=== PATIENT | female | born 1950 | race Caucasian/White ===

== ENCOUNTER 2016-09-02 14:20 | Outpatient (CLI) | payer MEDICARE, OTHER | END 2016-09-02 23:59 | DX: R41.3 Other amnesia (principal) ==

== ENCOUNTER 2016-09-17 08:40 | Outpatient (CLI) | payer OTHER ==
[2016-09-17] MEDS ORDERED: GADOBUTROL 7.5 MMOL/7.5 ML VIAL IVP ONE ×2 (10:00)
--- NOTE | 2016-09-17 17:01 | MRI Report ---
EXAM: MRI BRAIN WITHOUT AND WITH CONTRAST EXAM DATE: 09/17/2016 10:03 AM. CLINICAL HISTORY: Memory deficit. COMPARISON: None. TECHNIQUE: Multiplanar, multisequence T1-weighted and fluid-sensitive MR sequences of the brain were performed. Sequences optimized for routine evaluation. Other: None. Without and with IV Contrast: 6.5 cc Gadavist. FINDINGS: Brain Volume: Mild age-related volume loss is seen. Parenchyma/Dura: No masses, infarcts, or hemorrhage. Minimal periventricular and scattered punctate s ubcortical white matter T2 and FLAIR bright signal is seen in the cerebral hemispheres. No cortical s ignal abnormality. No abnormal enhancement. Ventricles/Cisterns: No hydrocephalus. No abnormal extra-axial fluid collection or hemorrhage. Orbits: The globes, optic nerve sheath complex, extraocular muscles, and orbital fat are unremarkable . Sella Turcica: The pituitary gland, cavernous sinuses, suprasellar cistern, and optic chiasm are unre markable. IAC: The internal auditory canals and cerebellopontine angle cisterns are symmetric and unremarkable. Vasculature: Normal signal flow void is seen in the major arterial structures at the skull base. The dural sinuses are patent and enhance normally. Sinuses: No sinusitis evident. Bones: The skull is intact. Other: None. IMPRESSION: 1. Negative MRI of the brain without and with contrast. No acute abnormality. No infarct, mass, hemor rhage, or abnormal enhancement. 2. Minimal senescent change. Minimal white matter T2/FLAIR bright signal is seen in the cerebral silviano spheres. This is not an unexpected finding in a patient of age 66 years. This is nonspecific but typi jemal secondary to small-vessel ischemic change. [facility] Referring Provider Line: [phone] SITE ID: [id number]
== END 2016-09-17 08:41 | disposition home or self-care (01) ==
LOC: DI 08:40
PROVIDERS: ATTEND Physician Assistant Medical
DX: R41.3 Other amnesia (principal)
CPT/HCPCS: 70553; A9585

== ENCOUNTER 2016-10-27 08:17 | Outpatient (CLI) | payer OTHER ==
--- NOTE | 2016-10-28 08:40 | Mammography Report ---
DIGITAL BILATERAL SCREENING MAMMOGRAM: 10/27/2016 CLINICAL HISTORY: This is a 66-year-old female in for routine screening mammogram. There is no family history of breast cancer. Patient, however, did have a personal history of breast cancer. She has had a lumpectomy in 1995 involving the left breast with subsequent radiation. She also had a right breast biopsy in 2001. In addition, she had an axillary node dissection with the original lumpectomy. COMPARISON: 09/04/2009, 09/04/2010, 09/11/2010, 01/15/2012, 02/02/2012, 2012, 02/22/2013, 09/19/2013, 04/23/2014, 10/09/2015 TECHNIQUE: Craniocaudad and oblique lateral views of each breast were obtained with Hologic Full Field digital mammography. To compliment the exam, axillary exaggerated craniocaudad views of both the right and the left breast were obtained. FINDINGS: Heterogeneously dense breasts are noted bilaterally. Scarring is seen at patient's lumpectomy site in the upper outer quadrant of the left breast once again. This has been noted on preceding exams. There are some benign calcifications noted once again in this area, probably result of benign fat necrosis. A few scattered benign-appearing calcifications are noted in the inner inferior quadrant of the left breast. These are small mario-like calcifications that are unchanged since compared to preceding exam. Right breast demonstrates some calcifications in the inner upper quadrant of the right breast at the 2 o'clock position beginning 5-6 cm posteromedial to the nipple. These may have shown mild progression in the number of calcifications as compared to preceding exam. Recommend craniocaudad and lateral medial magnification views of the right breast for further evaluation, and if indicated right breast ultrasound. There is also an area of prominent stranding seen in the central posterior aspect of the right breast 7-8 cm posterior to the right nipple. This area of prominent stranding appears progressive as compared to preceding exams. It most likely is a result of progressive scarring related to a prior biopsy in this region. Recommend coned- down compression craniocaudad and oblique lateral view as well as a mediolateral view for further evaluation. IMPRESSION: 1. PAST HISTORY OF A LUMPECTOMY IN THE UPPER OUTER QUADRANT OF THE LEFT BREAST WITH ASSOCIATED AXILLARY NODE RESECTION. SCARRING AND BENIGN CALCIFICATIONS ARE ONCE AGAIN NOTED AT THE LUMPECTOMY SITE IN ASSOCIATION WITH SURGICAL CLIPS. 2. CALCIFICATIONS ARE ONCE AGAIN SEEN IN THE 2 O'CLOCK POSITION OF THE RIGHT BREAST. THESE CALCIFICATIONS SHOW MILD PROGRESSION COMPARED TO PRECEDING EXAMS. RECOMMEND PATIENT RETURN FOR MAGNIFICATION VIEWS OF THE RIGHT BREAST FOR FURTHER EVALUATION AND IF NECESSARY, RIGHT BREAST ULTRASOUND. 3. PROMINENT STRANDING IS NOTED IN THE CENTRAL POSTERIOR ASPECT OF THE RIGHT BREAST, PROBABLY RELATED TO A PRIOR BIOPSY IN THIS REGION. FINDINGS IN THIS AREA APPEAR PROGRESSIVE COMPARED TO PRECEDING EXAM. RECOMMEND ADDITIONAL VIEWS OF THE RIGHT BREAST AND IF NECESSARY, RIGHT BREAST ULTRASOUND FOR FURTHER EVALUATION. BIRADS CATEGORY 0 - INCOMPLETE. ADDITIONAL VIEWS OF THE RIGHT BREAST AND IF INDICATED, RIGHT BREAST ULTRASOUND SHOULD BE OBTAINED FOR FURTHER EVALUATION. STANDARD QUALIFYING STATEMENTS 1. This examination was reviewed with the aid of Computer-Aided Detection (CAD). 2. A negative or benign imaging report should not delay biopsy if clinically suspicious findings are present. Consider surgical consultation if warranted. More than 5% of cancers are not identified by imaging. 3. Dense breasts may obscure an underlying neoplasm. JOB #: [id number] EXT JOB #: [id number] DEONTE
== END 2016-10-27 08:18 | disposition home or self-care (01) ==
LOC: DI 08:17
PROVIDERS: ATTEND Family Medicine
DX: Z12.31 Encounter for screening mammogram for malignant neoplasm of breast (principal); R92.1 Mammographic calcification found on diagnostic imaging of breast; R92.8 Other abnormal and inconclusive findings on diagnostic imaging of breast; Z85.3 Personal history of malignant neoplasm of breast
CPT/HCPCS: 77067

== ENCOUNTER 2016-11-16 12:46 | Outpatient (CLI) | payer OTHER ==
--- NOTE | 2016-11-16 17:43 | Mammography Report ---
DIGITAL DIAGNOSTIC RIGHT MAMMOGRAM: 11/16/2016 CLINICAL INDICATION: Calcifications right inner breast, "stranding." TECHNIQUE: Right true lateral, spot compression, and spot magnification views. COMPARISON: 10/27/2016, 10/09/2015, 04/23/2014, 09/19/2013, 02/22/2013, 2012, 02/02/2012, 01/15/2012, 09/11/2010, 09/04/2010, 09/04/2009 FINDINGS: The right breast again demonstrates heterogeneously dense fibroglandular parenchyma. The possible architectural distortion in the right central posterior breast does not persist on additional compression. The calcifications in the right upper inner quadrant appear stable on spot magnification views, comparing back to magnification views of 02/02/2012. No associated mass is identified. IMPRESSION: BENIGN FINDINGS. RECOMMENDATION: Routine annual screening unless otherwise clinically indicated. BIRADS CATEGORY 2 - BENIGN FINDINGS. STANDARD QUALIFYING STATEMENTS 1. This examination was reviewed with the aid of Computer-Aided Detection (CAD). 2. A negative or benign imaging report should not delay biopsy if clinically suspicious findings are present. Consider surgical consultation if warranted. More than 5% of cancers are not identified by imaging. 3. Dense breasts may obscure an underlying neoplasm. JOB #: [id number] EXT JOB #: [id number] DEONTE
== END 2016-11-16 12:47 | disposition home or self-care (01) ==
LOC: DI 12:46
PROVIDERS: ATTEND Family Medicine
DX: R92.1 Mammographic calcification found on diagnostic imaging of breast (principal)

== ENCOUNTER 2017-03-05 15:39 | Outpatient (CLI) | payer OTHER ==
--- NOTE | 2017-03-07 22:11 | XRAY Report ---
EXAM: LEFT RIB RADIOGRAPHY EXAM DATE: 03/05/2017 04:04 PM. CLINICAL HISTORY: RIB PAIN, LEFT SIDED, BACK PAIN, THORACIC REGION. History of breast cancer. COMPARISON: None. TECHNIQUE: 1 view of the chest and 2 views of the ribs. FINDINGS: Bones: Innumerable mottled areas of sclerosis involving virtually all visualized osseous structures. These are new from the prior chest radiograph of 2013. Findings are highly suspicious for osseous met astases. No pathologic fracture identified. Old left posterior rib fracture. Lungs: No focal opacities. No pneumothorax. No pleural effusions. Mediastinum: Heart and mediastinal contours are unremarkable. Other: Surgical clips overlying the left breast and left axilla. IMPRESSION: New innumerable osseous metastases. No pathologic fracture identified. Results discussed with Dr. Betancourt at 10:07 pm on 03/07/2017. [facility] Referring Provider Line: [phone] SITE ID: [id number]
== END 2017-03-05 15:40 | disposition home or self-care (01) ==
LOC: DI 15:39
PROVIDERS: ATTEND Family Medicine
DX: M89.9 Disorder of bone, unspecified (principal); Z85.3 Personal history of malignant neoplasm of breast

== ENCOUNTER 2017-03-17 15:01 | Outpatient (CLI) | payer MEDICARE, OTHER ==
--- NOTE | 2017-03-17 16:20 | Ultrasound Report ---
THYROID ULTRASOUND: 03/17/2017 CLINICAL INDICATION: Thyroid nodule, osseous metastatic disease. TECHNIQUE: Real-time scanning was performed with applications sales representative static images obtained. FINDINGS: The right lobe measures 5.1 x 1.7 x 1.6 cm, and the left lobe measures 5.0 x 2.4 x 2.3 cm. The isthmus measures 4 mm. Multiple thyroid nodules are present. The largest, in the mid portion of the left lobe, measures 2.9 x 1.9 x 1.7 cm, and is spongiform. Multiple spongiform nodules are se en scattered in the right lobe. No suspicious solid nodule is appreciated. IMPRESSION: MULTINODULAR THYROID, WITH MULTIPLE SPONGIFORM NODULES. NO SUSPICIOUS NODULE IS PRESENT . JOB #: [id number] EXT JOB #:[id number]
== END 2017-03-17 15:02 | disposition home or self-care (01) ==
LOC: DI 15:01
PROVIDERS: ATTEND Physician Assistant Medical
DX: E04.2 Nontoxic multinodular goiter (principal)
CPT/HCPCS: 76536

== ENCOUNTER 2017-06-08 06:10 | Day surgery (SDC) | payer MEDICARE, OTHER ==
[2017-06-08] MEDS ORDERED: LACTATED RINGERS 1,000 ML IV ONE (06:32)
[2017-06-08] MEDS ORDERED: ceFAZolin 2 GM/50 ML 2 GM/50 ML BAG IV ONE (06:36)
[2017-06-08] MEDS ORDERED: BUPIVACAINE 0.5% PF 30 ML VIAL SUBQ ONE ×2 (08:05)
--- NOTE | 2017-06-08 08:32 | OPERATIVE REPORT ---
Operative Report - General Procedure Date: 06/08/17 Planned Procedure: Portacath placement Pre-Op Diagnosis: Metastatic breast cancer Procedure Performed: LEFT subclavian vein Portacath placement Post Op Diagnosis: Same - Procedure Note Primary Surgeon: Tuan English MD Anesthesia Provider: Tuan Bhatti MD Anesthesia Technique: Local (10 mL 1/2% marcaine), MAC IV Fluids (mL): 600 Estimated Blood Loss (mL): 2 Complications: None. - Other Other Information/Narrative: OPERATIVE DESCRIPTION/REPORT: After verbal and written informed consent was obtained detailing the risks of infection, bleeding requiring transfusion with its risks, nerve injury, and , and after I met with the patient confirming the surgery and the site of the surgery and after initialing the site of the surgery with a surgical marker , the patient was brought to the operative suite and placed supine on the operating table. Great care was taken to avoid pressure points to prevent pressure necrosis or nerve injury. Monitoring devices were applied along with TEDs and pneumatic compressive stockings (to prevent DVT). The patient received preoperative antibiotics for surgical prophylaxis. Dr. Tuan Bhatti sedated and anethetized the patient for the entire procedure. The patient was prepped and draped in the usual sterile manner. With the patient draped my initials were clearly visible. A "time in" then confirmed that the patient was identified with 3 identifiers (name, date and medical record number), the history and physical was in the chart, the signed consent confirming the procedure was in the chart, the patient was in the correct position, the aforementioned prophylactic measures were in place or given, we had the correct personnel and equipment to complete the procedure and that anesthesia, surgery and nursing were given an opportunity to express any concerns. With the agreement of everyone in the room, we proceeded with the operation. After the subclavian region was anesthetized using % marcaine and the patient placed in Trendelenberg position, an [employer] Smartport kit (see medical record for catalog and lot number) was opened. The finder needle was inserted into the subclavian vein taking great care to place it just under the clavicle in order to minimize the risk of pneumothorax. When good venous blood return was obtained, the wire was placed through the needle and into the vein without difficulty. Cardiac irritability confirmed that the catheter was correctly going down towards the heart. Below and lateral to the needle insertion site, the area was anesthetized again using % marcaine and a transverse incision was made just large enough to accommodate the port. This incision was taken down to the fascia using sharp dissection and the area for the port was created using blunt downward dissection. Meticulous hemostasis was obtained using Bovie electrocautery. A knife was inserted along the wire to widen the insertion site and this was further dilated using a Margi. The port was flushed with heparinized saline and placed in the pouch and the catheter was then passed to the needle opening using the passer. The catheter was then measured against the patients anterior chest and cut so that the tip would lie 2 cm below the manubrial-sternal junction. The port was secured to the fascia using a 3-0 Prolene on the side of the opening of the port. The catheter was then wiped and wrapped with a heparinized soaked 4x4. The dilator and sheath were then carefully inserted over the wire and the dilator and wire withdrawn. The catheter was then inserted into the sheath and the sheath was broken away from the catheter leaving the catheter in place in the vein. An X- ray confirmed placement of the catheter tip in the right atrium/supracardiac vena cava without pneumothorax. Using a Hueber needle the port was accessed and good blood return as well as easy flush was noted. The subcutaneous tissue was approximated using 3-0 Vicryl and the skin incisions were approximated with 4-0 Monocryl in a subcuticular fashion. The skin prep was washed off and prepped with benzoin. Steristrips were applied. At this point a time out was performed that confirmed that all the counts were correct, the procedure that was performed, the blood loss, the IV fluids administered, and the patients condition. A dressing was placed on the wound. Having tolerated the procedure well, the patient was taken to short stay in good and stable condition. The patient was instructed that the Portacath could be used immediately.
[2017-06-08] MEDS ORDERED: PROPOFOL 200 MG/20 ML VIAL IVP ONE (08:33)
[2017-06-08] MEDS ORDERED: LIDOCAINE-MPF 2% 5 ML VIAL IM ONE (08:33)
[2017-06-08 08:42] VITALS: BP 122/60
--- NOTE | 2017-06-08 17:50 | XRAY Report ---
DATE OF SERVICE: 06/08/2017 FRONTAL CHEST: 06/08/2017 CLINICAL INDICATION: Port-A-Cath placement. Frontal view of the chest demonstrates a left subclavian port terminating in the mid superior vena cava. The cardiac silhouette is not enlarged. No pneumothorax is appreciated on the supine view, but the left costophrenic angle is excluded. Widespread osseous metastatic disease is again noted, previously seen on CT of the chest of 03/11/2017. IMPRESSION: Left subclavian port terminating in the mid superior vena cava. TD: 06/08/2017 18:49
== END 2017-06-08 06:11 | disposition home or self-care (01) ==
LOC: SDS 06:10
PROVIDERS: ATTEND Surgery
PROC: 05H633Z Insertion of Infusion Device into Left Subclavian Vein, Percutaneous Approach (ICD-10-PCS; 2017-06-08)
PROC: 0JH60WZ Insertion of Totally Implantable Vascular Access Device into Chest Subcutaneous Tissue and Fascia, Open Approach (ICD-10-PCS; principal; 2017-06-08 07:30)
DX: C50.919 Malignant neoplasm of unspecified site of unspecified female breast (principal); C79.51 Secondary malignant neoplasm of bone
CPT/HCPCS: 36561; C1788; J0690; J7120

== ENCOUNTER 2017-07-05 15:25 | Emergency (ER) | payer MEDICARE, OTHER ==
--- NOTE | 2017-07-05 15:36 | ED Physician Documentation ---
History of Present Illness - Stated complaint Stated Complaint: ABNORMAL LABS - Chief complaint Chief Complaint: Abd Pain - History obtained from History obtained from: Patient - History of Present Illness Timing: Last night - Additonal information Additional information: 66-year-old female who is undergoing treatment for recurrent breast cancer has had a markedly decreased appetite and she has been drinking Ensure. Last night she became hungry and tried to eat a can of food cocktail. She had immediate severe pain in her abdomen radiating from the left upper abdomen across the abdomen. She was able to drive herself into the hospital this morning she had lab work done showing a decreased hematocrit and transfusion was started . She had a marked change in her pain and began to hyperventilate at the start of the 2nd unit. Review of Systems Constitutional: reports: Fatigue, Weight Loss. denies: Fever Eyes: denies: Decreased vision Ears: denies: Ear pain Nose: denies: Rhinorrhea / runny nose, Congestion Throat: denies: Sore throat Cardiac: denies: Chest pain / pressure Respiratory: reports: Dyspnea. denies: Cough GI: reports: Abdominal Pain, Nausea, Vomiting, Other (decreased appetite.) : denies: Dysuria, Frequency Skin: denies: Rash Musculoskeletal: denies: Neck pain, Back pain, Extremity pain Neurologic: reports: Generalized weakness. 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: Hysterectomy, Mastectomy, Breast implants HEENT: Tonsil/Adenoidectomy - Present Medications Home Medications: Ambulatory Orders Medication Instructions Recorded Confirmed Ondansetron HCl [Zofran] 8 mg PO Q8H PRN 04/06/17 06/15/17 Promethazine [Phenergan] 25 mg PO Q6H PRN 04/06/17 06/15/17 Calcium Carbonate 600 mg PO DAILY 06/07/17 06/15/17 Cyclobenzaprine HCl 10 mg PO TID PRN 06/07/17 06/15/17 Denosumab [Prolia] 60 mg SUBQ ONCE 06/07/17 06/15/17 Diazepam [Valium] 5 mg PO BID PRN MDD 10mg 06/07/17 06/15/17 Lactobacillus Acidophilus 1 each PO DAILY 06/07/17 06/15/17 [Probiotic Acidophilus] Naproxen [Naprosyn] 500 mg PO BID PRN 06/07/17 06/15/17 Omeprazole 40 mg PO DAILY 06/07/17 06/15/17 Potassium Chloride 99 mg PO DAILY 06/07/17 06/15/17 buPROPion [Wellbutrin Xl] 3 tab PO DAILY 06/07/17 06/15/17 raNITIdine [Zantac] 300 mg PO DAILY PM 06/07/17 06/15/17 Sucralfate [Carafate] 1 gm PO ACHS #40 tablet 07/05/17 - Allergies Allergies/Adverse Reactions: Allergies Allergy/AdvReac Type Severity Reaction Status Date / Time erythromycin base Allergy Unknown Verified 06/07/17 14:38 ibuprofen [From Motrin] AdvReac Intermediate Diaphoresis Verified 06/07/17 14:38 codeine AdvReac Nausea Verified 06/07/17 14:38 - Social History Does the pt smoke?: Yes Smoking Status: Current every day smoker Does the pt drink ETOH?: Yes Does the pt have substance abuse?: Yes - Immunizations Immunizations are current?: Yes PD ED PE NORMAL - Vitals Vital signs reviewed: Yes (hypertensive) - General General: Alert and oriented X 3, Well developed/nourished, Other ( hyperventilating and anxious appearing) - HEENT HEENT: Atraumatic, PERRL, EOMI, Other (dry mucous membranes ) - Neck Neck: Supple, no meningeal sign, No bony TTP - Cardiac Cardiac: RRR, No murmur - Respiratory Respiratory: Other (tachypneic at rest with clear lungs. ) - Abdomen Abdomen: Soft, Other (generally tender with pain radiating to the RLQ with palpation of the LUQ .) - Back Back: No CVA TTP, No spinal TTP - Derm Derm: Normal color, Warm and dry, No rash - Extremities Extremities: No deformity, No edema - Neuro Neuro: Alert and oriented X 3, parks recreation director 2-12 intact, No motor deficit, No sensory deficit, Normal speech Eye Opening: Spontaneous Motor: Obeys Commands Verbal: Oriented GCS Score: 15 - Psych Psych: Normal mood, Normal affect Results - Vitals Vitals: Vital Signs - 24 hr 07/05/17 15:32 Temperature 36.9 C Heart Rate 96 Respiratory 22 Rate Blood Pressure 156/85 H O2 Saturation 100 Oxygen O2 Source Room air - Labs Labs: Laboratory Tests 07/05/17 09:40 Blood Type A POSITIVE Antibody Screen NEGATIVE Crossmatch IS Only See Detail - Rads (name of study) CT ab/pel with Radiology: Prelim report reviewed (Impression: 1. Thickening and inflammation of the pylorus and proximal to mid duodenum consistent with duodenitis and gastritis versus secondary inflammation from acute pancreatitis. 2. Pancreas enhances homogeneously without pancreatic necrosis or mass. 3. Diffuse increased fluid within the small bowel and colon question enteritis or malabsorption versus diarrheal type illness. 4. Extensive sclerotic bone lesions similar to previous suspicious for metastatic bone disease), EMP read indepedently, See rad report PD MEDICAL DECISION MAKING - ED course Complexity details: reviewed old records, reviewed results, re-evaluated patient , considered differential, d/w patient ED course: 66-year-old female with recurrent metastatic breast cancer has developed some abdominal pain beginning last night similar to what she has had previously after eating only more severe. She continued to have this pain and today while getting a transfusion the pain peaked and she became anxious and this looked like a possible blood transfusion reaction. The transfusion was stopped the patient was brought to the emergency department she was evaluated given some pain medication with resolution of her pain she had some improvement in her nausea as well and a CT scan of the abdomen pelvis was obtained with contrast. She does appear to have some acute gastritis with thickening of the pylorus and duodenum and some inflammation throughout the rest of the GI tract. The patient states that her digestion has been an issue for some time and that she states that she feels she is in her normal state with abdominal distention and discomfort that she relates to her chemotherapy.Here in the emergency department a second unit of blood is begun after her CT scan has returned. She is treated for the gastritis with IV Protonix and oral Carafate and she feels well and would wish to go home. Departure - Departure Clinical Impression: Gastritis Qualifiers: Gastritis type: other gastritis Chronicity: acute Gastritis bleeding: without bleeding Qualified Code(s): K29.00 - Acute gastritis without bleeding Anemia Qualifiers: Anemia type: unspecified type Qualified Code(s): D64.9 - Anemia, unspecified Instructions: ED PUD Vs Gastritis, ED Anemia Type Not Specified Follow-Up: Emily Caballero PA-C [Primary Care Provider] - Prescriptions: Sucralfate [Carafate] 1 gm PO ACHS #40 tablet Comments: Today it appears that your stomach is irritated and inflamed. For the treatment of this use the Carafate. The Carafate should be placed on her tongue and allowed to dissolve over a period of several minutes and this helps to put a little water in your mouth and then swallow this to coat your esophagus and stomach. In addition you should use a medication to reduce the acid in her stomach you to the Zantac or the omeprazole you have used before.
[2017-07-05] MEDS ORDERED: HYDROmorphone 1 MG/ML SYRINGE IVP STA (15:50)
[2017-07-05] MEDS ORDERED: ONDANSETRON 4 MG/2 ML VIAL IVP STA (15:50)
[2017-07-05] MEDS ORDERED: IOPAMIDOL-300 100 ML VIAL ONE (16:18)
[2017-07-05] MEDS ORDERED: IOPAMIDOL-300 100 ML VIAL IVP ONE (16:48)
--- NOTE | 2017-07-05 17:20 | CT Report ---
EXAM: CT ABDOMEN AND PELVIS EXAM DATE: 07/05/2017 04:33 PM. CLINICAL HISTORY: Acute pain from LUQ to RLQ. COMPARISONS: 03/11/2017. TECHNIQUE: Routine helical CT imaging was performed through the abdomen and pelvis. IV contrast: 100 ML ISOVUE 300. Enteric contrast: No. Reconstructions: Coronal and sagittal. In accordance with CT protocol optimization, one or more of the following dose reduction techniques w ere utilized for this exam: automated exposure control, adjustment of mA and/or KV based on patient s ize, or use of iterative reconstructive technique. FINDINGS: Lung Bases: Unremarkable. Liver: There are small low-density lesions in the liver which appear unchanged. No intrahepatic bilia ry dilatation. Gallbladder/Bile Ducts: The gallbladder is surgically absent. Spleen: Normal. Pancreas: No pancreatic mass. The pancreas enhances homogeneously with contrast. Adrenal Glands: Normal. Kidneys: Normal. No masses or hydronephrosis. Peritoneal Cavity/Bowel: The pylorus of the stomach and the duodenum have a thickened wall. There is fat stranding in the right upper quadrant around the proximal duodenum. There is a trace amount of fl uid in Morison's pouch. There is no free air. The colon is fluid-filled. There is increased fluid in the small bowel. Pelvic Organs: Urinary bladder is unremarkable. Uterus not visualized. Vasculature: Abdominal aorta is normal in caliber. Bones: There are numerous small sclerotic lesions which involve the bones diffusely. There are findin gs of posterior surgical fixation at L5-S1. There is disk height loss in the upper lumbar spine. Other: None. IMPRESSION: 1. Thickening and inflammation of the pylorus and proximal to mid duodenum, consistent with duodeniti s and gastritis versus secondary inflammation from acute pancreatitis. 2. Pancreas enhances homogeneously without pancreatic necrosis or mass. 3. Diffuse increased fluid within the small bowel and colon, question enteritis or malabsorption vers us diarrhea-type illness. 4. Extensive sclerotic bone lesions, similar to previous, suspicious for metastatic bone disease. [facility] Referring Provider Line: [phone] SITE ID: [id number]
[2017-07-05] MEDS ORDERED: SUCRALFATE 1 GM/10 ML UDC PO STA (17:54)
[2017-07-05] MEDS ORDERED: PANTOPRAZOLE 40 MG VIAL IVP STA (17:54)
[2017-07-05] MEDS ORDERED: DEXAMETHASONE 10 MG/ML VIAL IVP STA (19:10)
[2017-07-05 20:35] VITALS: BP 123/78
== END 2017-07-05 21:00 | disposition home or self-care (01) ==
LOC: ED 15:25
DX: K29.00 Acute gastritis without bleeding (principal); F17.200 Nicotine dependence, unspecified, uncomplicated; C50.919 Malignant neoplasm of unspecified site of unspecified female breast
CPT/HCPCS: 36430; 74177; 86850; 86900; 86901; 86920; 96374; 96375; 99283; 99284; A9270; J1170; P9016; Q9967

== ENCOUNTER 2017-07-09 23:39 | Outpatient (CLI) | payer MEDICARE, OTHER | END 2017-07-09 23:40 | disposition critical access hospital (66) | LOC: EMS 23:39 | PROVIDERS: ATTEND Surgery | DX: R41.82 Altered mental status, unspecified (principal); K92.1 Melena; R45.1 Restlessness and agitation | CPT/HCPCS: A0425; A0429 ==

== ENCOUNTER 2017-07-09 23:53 | Inpatient (IN) | payer MEDICARE, OTHER ==
[2017-07-10] MEDS ORDERED: LORazepam 2 MG/ML VIAL IVP STA ×2 (00:07→01:26)
[2017-07-10] MEDS ORDERED: SODIUM CHLORIDE 0.9% 1,000 ML IV ONE (00:10)
--- NOTE | 2017-07-10 00:10 | ED Physician Documentation ---
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 According to family patient was at her baseline earlier today. Family states that she did have some blood in her stools earlier today as well. Patient had recently been seen in the emergency department where she was transfused. Patient had been doing relatively well. This evening patient was confused and combative. 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 HEENT: Tonsil/Adenoidectomy - Present Medications Home Medications: Ambulatory Orders Medication Instructions Recorded Confirmed Ondansetron HCl [Zofran] 8 mg PO Q8H PRN 04/06/17 07/06/17 Promethazine [Phenergan] 25 mg PO Q6H PRN 04/06/17 07/06/17 Calcium Carbonate 600 mg PO DAILY 06/07/17 07/06/17 Cyclobenzaprine HCl 10 mg PO TID PRN 06/07/17 07/06/17 Denosumab [Prolia] 60 mg SUBQ ONCE 06/07/17 07/06/17 Diazepam [Valium] 5 mg PO BID PRN MDD 10mg 06/07/17 07/06/17 Lactobacillus Acidophilus 1 each PO DAILY 06/07/17 07/06/17 [Probiotic Acidophilus] Naproxen [Naprosyn] 500 mg PO BID PRN 06/07/17 07/06/17 Omeprazole 40 mg PO DAILY 06/07/17 07/06/17 Potassium Chloride 99 mg PO DAILY 06/07/17 07/06/17 buPROPion [Wellbutrin Xl] 3 tab PO DAILY 06/07/17 07/06/17 raNITIdine [Zantac] 300 mg PO DAILY PM 06/07/17 07/06/17 Sucralfate [Carafate] 1 gm PO ACHS #40 tablet 07/05/17 07/06/17 - Allergies Allergies/Adverse Reactions: Allergies Allergy/AdvReac Type Severity Reaction Status Date / Time erythromycin base Allergy Unknown Verified 06/07/17 14:38 ibuprofen [From Motrin] AdvReac Intermediate Diaphoresis Verified 06/07/17 14:38 codeine AdvReac Nausea Verified 06/07/17 14:38 - Social History Does the pt smoke?: Yes Smoking Status: Current every day smoker Does the pt drink ETOH?: Yes Does the pt have substance abuse?: Yes - Immunizations Immunizations are current?: Yes PD ED PE EXPANDED - General General: Other (ill appearing, altered) - HEENT HEENT: Dry mucous membranes - Eyes Eyes: Other (dilated pupils with pale sclera) - Cardiac Cardiac: Prolonged cap refill - Respiratory Respiratory: Labored, Accessory mm use, Retractions - Derm Derm: Pale - Neuro Neuro: Confused, Disoriented - GCS Eye Opening: Spontaneous Motor: Localizes to Pain Verbal: None Total: 10 Results - Vitals Vitals: Vital Signs - 24 hr 07/09/17 07/10/17 07/10/17 23:57 00:32 00:50 Temperature 36.3 C L 36.4 C L Heart Rate 121 H 119 H 120 H Respiratory 23 28 H 30 H Rate Blood Pressure 142/79 H 110/96 H 110/96 H O2 Saturation 100 100 100 07/10/17 07/10/17 07/10/17 01:07 01:17 01:27 Temperature 36.2 C L Heart Rate 122 H 122 H 119 H Respiratory 29 H 31 H 29 H Rate Blood Pressure 155/54 H 158/78 H 158/78 H O2 Saturation 100 100 99 Oxygen O2 Source Nasal cannula Oxygen Flow Rate 2 - EKG (time done) 0021 Rate: Rate (enter#) (123) Rhythm: Sinus tachycardia [place]: Normal Intervals: Normal NH Other comments: Other comments (mildly peaked t waves) Compare to prior EKG: Changed from prior EKG - Labs Labs: Laboratory Tests 07/10/17 07/10/17 07/10/17 00:15 00:15 00:15 WBC 17.5 H RBC 1.45 L Hgb 4.5 L* Hct 14.2 L* MCV 98.3 MCH 30.9 MCHC 31.4 L RDW 18.8 H Plt Count 211 MPV 8.8 Neut # Not Reportable Lymph # Not Reportable [place] # Not Reportable Eos # Not Reportable Baso # Not Reportable Absolute Nucleated RBC Not Reportable Total Counted 100 Band Neuts % (Manual) 7 Abnorm Lymph % (Manual) 0 Metamyelocytes % 4 H Myelocytes % 4 H Nucleated RBC % Not Reportable Neutrophils # (Manual) 9.8 H Lymphocytes # (Manual) 6.0 H Monocytes # (Manual) 0.4 Eosinophils # (Manual) 0.0 Basophils # (Manual) 0.0 Nucleated RBCs 12 Differential Comment MANUAL DIFFERENTIAL Platelet Estimate NORMAL (130-450,000) RBC Morph Micro Appear 1+ OVALOCYTES PT 22.3 H INR 2.0 H APTT 27.4 VBG pH VBG pCO2 VBG pO2 VBG HCO3 VBG Total CO2 VBG O2 Saturation VBG Base Excess Sodium 140 Potassium 4.7 Chloride 108 Carbon Dioxide 12 L* Anion Gap 20.0 H BUN 44 H Creatinine 1.1 H Estimated GFR (MDRD) 50 L Glucose 168 H Lactic Acid Uric Acid 7.2 Calcium 7.1 L Phosphorus 3.2 Magnesium 2.4 Total Bilirubin 0.6 AST 77 H ALT < 10 L Alkaline Phosphatase 128 H Ammonia Total Protein 4.5 L Albumin 2.0 L Globulin 2.5 Albumin/Globulin Ratio 0.8 L Lipase 19 L TSH Urine Color Urine Clarity Urine pH Ur Specific [place] Urine Protein Urine Glucose (UA) Urine Ketones Urine Occult Blood Urine Nitrite Urine Bilirubin Urine Urobilinogen Ur Leukocyte Esterase Ur Microscopic Review Urine Culture Comments Urine Opiates Screen Ur Oxycodone Screen Urine Methadone Screen Ur Propoxyphene Screen Ur Barbiturates Screen Ur Tricyclics Screen Ur Phencyclidine Scrn Ur Amphetamine Screen U Methamphetamines Scrn U Benzodiazepines Scrn Urine Cocaine Screen U Cannabinoids Screen Blood Type Antibody Screen Crossmatch IS Only 07/10/17 07/10/17 07/10/17 00:15 00:30 00:30 WBC RBC Hgb Hct MCV MCH MCHC RDW Plt Count MPV Neut # Lymph # [place] # Eos # Baso # Absolute Nucleated RBC Total Counted Band Neuts % (Manual) Abnorm Lymph % (Manual) Metamyelocytes % Myelocytes % Nucleated RBC % Neutrophils # (Manual) Lymphocytes # (Manual) Monocytes # (Manual) Eosinophils # (Manual) Basophils # (Manual) Nucleated RBCs Differential Comment Platelet Estimate RBC Morph Micro Appear PT INR APTT VBG pH 7.312 VBG pCO2 20.4 L VBG pO2 88.1 H VBG HCO3 10.1 L VBG Total CO2 10.7 L VBG O2 Saturation 93.7 H VBG Base Excess -14.9 L Sodium Potassium Chloride Carbon Dioxide Anion Gap BUN Creatinine Estimated GFR (MDRD) Glucose Lactic Acid > 10.0 H* Uric Acid Calcium Phosphorus Magnesium Total Bilirubin AST ALT Alkaline Phosphatase Ammonia Total Protein Albumin Globulin Albumin/Globulin Ratio Lipase TSH 1.02 Urine Color Urine Clarity Urine pH Ur Specific [place] Urine Protein Urine Glucose (UA) Urine Ketones Urine Occult Blood Urine Nitrite Urine Bilirubin Urine Urobilinogen Ur Leukocyte Esterase Ur Microscopic Review Urine Culture Comments Urine Opiates Screen Ur Oxycodone Screen Urine Methadone Screen Ur Propoxyphene Screen Ur Barbiturates Screen Ur Tricyclics Screen Ur Phencyclidine Scrn Ur Amphetamine Screen U Methamphetamines Scrn U Benzodiazepines Scrn Urine Cocaine Screen U Cannabinoids Screen Blood Type Antibody Screen Crossmatch IS Only 07/10/17 07/10/17 07/10/17 00:30 00:30 00:30 WBC RBC Hgb Hct MCV MCH MCHC RDW Plt Count MPV Neut # Lymph # [place] # Eos # Baso # Absolute Nucleated RBC Total Counted Band Neuts % (Manual) Abnorm Lymph % (Manual) Metamyelocytes % Myelocytes % Nucleated RBC % Neutrophils # (Manual) Lymphocytes # (Manual) Monocytes # (Manual) Eosinophils # (Manual) Basophils # (Manual) Nucleated RBCs Differential Comment Platelet Estimate RBC Morph Micro Appear PT INR APTT VBG pH VBG pCO2 VBG pO2 VBG HCO3 VBG Total CO2 VBG O2 Saturation VBG Base Excess Sodium Potassium Chloride Carbon Dioxide Anion Gap BUN Creatinine Estimated GFR (MDRD) Glucose Lactic Acid Uric Acid Calcium Phosphorus 3.2 Magnesium 2.5 Total Bilirubin AST ALT Alkaline Phosphatase Ammonia 336.3 H* Total Protein Albumin Globulin Albumin/Globulin Ratio Lipase TSH Urine Color Urine Clarity Urine pH Ur Specific [place] Urine Protein Urine Glucose (UA) Urine Ketones Urine Occult Blood Urine Nitrite Urine Bilirubin Urine Urobilinogen Ur Leukocyte Esterase Ur Microscopic Review Urine Culture Comments Urine Opiates Screen Ur Oxycodone Screen Urine Methadone Screen Ur Propoxyphene Screen Ur Barbiturates Screen Ur Tricyclics Screen Ur Phencyclidine Scrn Ur Amphetamine Screen U Methamphetamines Scrn U Benzodiazepines Scrn Urine Cocaine Screen U Cannabinoids Screen Blood Type A POSITIVE Antibody Screen NEGATIVE Crossmatch IS Only See Detail 07/10/17 07/10/17 00:36 00:36 WBC RBC Hgb Hct MCV MCH MCHC RDW Plt Count MPV Neut # Lymph # [place] # Eos # Baso # Absolute Nucleated RBC Total Counted Band Neuts % (Manual) Abnorm Lymph % (Manual) Metamyelocytes % Myelocytes % Nucleated RBC % Neutrophils # (Manual) Lymphocytes # (Manual) Monocytes # (Manual) Eosinophils # (Manual) Basophils # (Manual) Nucleated RBCs Differential Comment Platelet Estimate RBC Morph Micro Appear PT INR APTT VBG pH VBG pCO2 VBG pO2 VBG HCO3 VBG Total CO2 VBG O2 Saturation VBG Base Excess Sodium Potassium Chloride Carbon Dioxide Anion Gap BUN Creatinine Estimated GFR (MDRD) Glucose Lactic Acid Uric Acid Calcium Phosphorus Magnesium Total Bilirubin AST ALT Alkaline Phosphatase Ammonia Total Protein Albumin Globulin Albumin/Globulin Ratio Lipase TSH Urine Color YELLOW Urine Clarity CLEAR Urine pH 6.0 Ur Specific [place] 1.020 Urine Protein NEGATIVE Urine Glucose (UA) NEGATIVE Urine Ketones NEGATIVE Urine Occult Blood NEGATIVE Urine Nitrite NEGATIVE Urine Bilirubin NEGATIVE Urine Urobilinogen 0.2 (NORMAL) Ur Leukocyte Esterase NEGATIVE Ur Microscopic Review NOT INDICATED Urine Culture Comments NOT INDICATED Urine Opiates Screen POSITIVE H Ur Oxycodone Screen NEGATIVE Urine Methadone Screen NEGATIVE Ur Propoxyphene Screen NEGATIVE Ur Barbiturates Screen NEGATIVE Ur Tricyclics Screen POSITIVE H Ur Phencyclidine Scrn NEGATIVE Ur Amphetamine Screen NEGATIVE U Methamphetamines Scrn NEGATIVE U Benzodiazepines Scrn POSITIVE H Urine Cocaine Screen NEGATIVE U Cannabinoids Screen POSITIVE H Blood Type Antibody Screen Crossmatch IS Only - Rads (name of study) chest x-ray Radiology: Final report received (multiple metastatic lesions) PD MEDICAL DECISION MAKING - ED course Complexity details: reviewed old records, reviewed results, re-evaluated patient , considered differential, d/w family ED course: Patient was seen and examined at bedside. IV access was gained and labs were drawn. Patient was placed on a monitor. fluids were ordered as well as ativan. On the monitor and ekg showed somewhat peaked t waves so calcium was ordered. A discussion was had with the family concerning end of life wishes. They stated that they know the CA is terminal and would not want CPR or intubation but treat something if it is reversible. dni/dnr was signed. When patient's labs came back she was found to have a hemoglobin of 4.5 and a lactic acid greater than 10. blood transfusion was ordered. Family was made aware of the findings and the likely outcome. Hospitalist was contacted and the case was discussed with her. Patient was admitted for comfort care. Departure - Departure Disposition: 66 CAH DC/Xfer Clinical Impression: Anemia, Lactic acidosis Condition: Critical
[2017-07-10] MEDS ORDERED: CALCIUM GLUCONATE 1,000 MG in SODIUM CHLORIDE 0.9% 50 ML IV ONE (00:21)
[2017-07-10 00:32] LABS: PT - PROTHROMBIN TIME 22.3 secs (9.9-12.6)
[2017-07-10 00:40] LABS: BASOPHILS % (AUTO) 0.3 %; LYMPHOCYTES % (AUTO) 32.4 %; MEAN CORPUSCULAR HEMOGLOBIN 30.9 pg (27.0-31.0); MEAN CORPUSCULAR HGB CONC 31.4 g/dL (32.0-36.0); MEAN CORPUSCULAR VOLUME 98.3 fL (81.0-99.0); MEAN PLATELET VOLUME 8.8 fL (7.9-10.8); MONOCYTES % (AUTO) 9.8 %; NEUTROPHILS % (AUTO) 57.5 %; PLT - PLATELET COUNT 211 10^3/uL (130-450); RED BLOOD COUNT 1.45 10^6/uL (4.20-5.40); RED CELL DISTRIBUTION WIDTH 18.8 % (12.0-15.0); WHITE BLOOD COUNT 17.5 x10^3/uL (4.8-10.8)
[2017-07-10 00:42] LABS: HGB - HEMOGLOBIN 4.5 g/dL (12.0-16.0)
[2017-07-10 00:43] LABS: ABNORMAL LYMPHS % (MANUAL) 0 %
[2017-07-10 00:43] LABS: MUDS CUTOFF CONCENTRATIONS CUTOFF CONC BELOW:
[2017-07-10 00:44] LABS: VBG BASE EXCESS -14.9 mmol/L (-2 - +2); VBG PCO2 20.4 mmHg (41-51); VBG PH 7.312 (7.31-7.41); VBG PO2 88.1 mmHg (25-47); VBG TOTAL CO2 10.7 mmol/L (24-29)
[2017-07-10 00:53] LABS: ALBUMIN/GLOBULIN RATIO 0.8 (1.0-2.2); ALKALINE PHOSPHATASE 128 IU/L (42-121); ALT ALANINE AMINOTRANSFERASE < 10 IU/L (10-60); AST ASPARTATE AMINOTRANSFERASE 77 IU/L (10-42); BILIRUBIN,TOTAL 0.6 mg/dL (0.2-1.0); BUN - BLOOD UREA NITROGEN 44 mg/dL (6-20); CALCIUM 7.1 mg/dL (8.5-10.3); CREATININE 1.1 mg/dL (0.4-1.0); GFR - MDRD 50 (>89); GLUCOSE 168 mg/dL (70-100); LIPASE 19 U/L (22-51); MAGNESIUM 2.4 mg/dL (1.7-2.8); PHOSPHORUS 3.2 mg/dL (2.5-4.6); TOTAL PROTEIN 4.5 g/dL (6.7-8.2); URIC ACID 7.2 mg/dL (2.6-7.2)
[2017-07-10 00:56] LABS: CARBON DIOXIDE - CO2 12 mmol/L (21-32); CHLORIDE 108 mmol/L (101-111); SODIUM 140 mmol/L (135-145)
[2017-07-10 00:59] LABS: BILIRUBIN,URINE NEGATIVE (NEGATIVE); GLUCOSE, URINE (UA) NEGATIVE (NEGATIVE); KETONES,URINE (UA) NEGATIVE (NEGATIVE); LEUKOCYTE ESTERASE, URINE NEGATIVE (NEGATIVE); NITRITE,URINE NEGATIVE (NEGATIVE); OCCULT BLOOD,URINE NEGATIVE (NEGATIVE); PROTEIN,URINE NEGATIVE (NEGATIVE); UROBILINOGEN,URINE 0.2 (NORMAL) E.U./dL (NORMAL)
[2017-07-10 01:00] LABS: MAGNESIUM 2.5 mg/dL (1.7-2.8); PHOSPHORUS 3.2 mg/dL (2.5-4.6)
[2017-07-10 01:14] LABS: CLARITY,URINE CLEAR (CLEAR)
[2017-07-10 01:15] LABS: AMPHETAMINE SCREEN,URINE NEGATIVE (NEGATIVE); BENZODIAZEPINES SCREEN, URINE POSITIVE (NEGATIVE); COCAINE SCREEN URINE NEGATIVE (NEGATIVE); METHADONE SCREEN, URINE NEGATIVE (NEGATIVE); METHAMPHETAMINES SCREEN, URINE NEGATIVE (NEGATIVE); OPIATE SCREEN, URINE POSITIVE (NEGATIVE); OXYCODONE SCREEN, URINE NEGATIVE (NEGATIVE); PROPOXYPHENE SCREEN, URINE NEGATIVE (NEGATIVE); TRICYCLIC ANTIDEPRESSANT,URINE POSITIVE (NEGATIVE)
[2017-07-10] MEDS ORDERED: MORPHINE 10 MG/ML VIAL IVP STA (01:26)
--- NOTE | 2017-07-10 01:29 | XRAY Preliminary Report ---
Exam: XR CHEST 1 VIEW X-RAY IMPRESSION: 1. No acute airspace process. 2. Extensive osteoblastic metastases. [facility] SITE ID: [id number]
--- NOTE | 2017-07-10 01:30 | XRAY Report ---
EXAM: CHEST RADIOGRAPHY EXAM DATE: 07/10/2017 12:55 AM. CLINICAL HISTORY: Chemotherapy, ams. COMPARISON: 06/08/2017 chest x-ray. TECHNIQUE: 1 view. FINDINGS: Lungs/Pleura: No focal opacities evident. No pleural effusion. No pneumothorax. Mediastinum: Within exam limitations, the cardiomediastinal contour is normal. Other: Left chest port in stable position. Widespread osteoblastic metastases. IMPRESSION: 1. No acute airspace process. 2. Extensive osteoblastic metastases. [facility] Referring Provider Line: [phone] SITE ID: [id number]
[2017-07-10 01:33] LABS: BAND NEUTROPHILS % (MANUAL) 7 %; LYMPHOCYTES % (MANUAL) 34 %; METAMYELOCYTES % (MANUAL) 4 %; MONOCYTES # (MANUAL) 0.4 10^3/uL (0.0-1.0); MYELOCYTES % (MANUAL) 4 %; NEUTROPHILS # (MANUAL) 9.8 10^3/uL (1.5-6.6); NEUTROPHILS % (MANUAL) 49 %
[2017-07-10 01:34] LABS: DIFFERENTIAL COMMENT MANUAL DIFFERENTIAL; PLATELET ESTIMATE, MANUAL NORMAL (130-450,000) (NORMAL)
[2017-07-10] MEDS ORDERED: PROCHLORPERAZINE 10 MG/2 ML VIAL IVP PRN (01:35)
[2017-07-10] MEDS ORDERED: GLYCOPYRROLATE 1 MG/5 ML VIAL IVP PRN (01:42)
--- NOTE | 2017-07-10 02:09 | HISTORY & PHYSICAL EXAMINATION ---
Chief Complaint - Chief Complaint Chief Complaint: respiratory distress History of Present Illness - Admitted From Admitted From:: home - History Obtained From Records Reviewed: yes History obtained from: Pt's family Exam Limitations: Pt is minimally responsive, nonverbal - History of Present Illness HPI Comment/Other: Mrs. Pam Holder is a 66-year-old female with a history of breast cancer who was recently found to be metastatic. She was started on chemotherapy about 3 months ago and is thought at the time was that she had several years with the treatment. Unfortunately this is proven not to be the case. The patient came to the [facility] emergency department yesterday in respiratory distress and was found to be actively dying. Given her poor prognosis (widespread metastasis, especially in her lungs bilaterally) her family has signed a POLST and are requesting comfort measures only at this time. 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 - Substance History Use: Uses substance without health or social issues: Alcohol Abuse: Recurrent use of substance despite neg consequences: NONE Dependence: Experiences withdrawal or developed tolerances: NONE - POLST Patient has POLST: Yes POLST Status: DNR Meds/Allgy - Home Medications Home Medications: Ambulatory Orders Medication Instructions Recorded Confirmed Ondansetron HCl [Zofran] 8 mg PO Q8H PRN 04/06/17 07/06/17 Promethazine [Phenergan] 25 mg PO Q6H PRN 04/06/17 07/06/17 Calcium Carbonate 600 mg PO DAILY 06/07/17 07/06/17 Cyclobenzaprine HCl 10 mg PO TID PRN 06/07/17 07/06/17 Denosumab [Prolia] 60 mg SUBQ ONCE 06/07/17 07/06/17 Diazepam [Valium] 5 mg PO BID PRN MDD 10mg 06/07/17 07/06/17 Lactobacillus Acidophilus 1 each PO DAILY 06/07/17 07/06/17 [Probiotic Acidophilus] Naproxen [Naprosyn] 500 mg PO BID PRN 06/07/17 07/06/17 Omeprazole 40 mg PO DAILY 06/07/17 07/06/17 Potassium Chloride 99 mg PO DAILY 06/07/17 07/06/17 buPROPion [Wellbutrin Xl] 3 tab PO DAILY 06/07/17 07/06/17 raNITIdine [Zantac] 300 mg PO DAILY PM 06/07/17 07/06/17 Sucralfate [Carafate] 1 gm PO ACHS #40 tablet 07/05/17 07/06/17 - Allergies Allergies/Adverse Reactions: Allergies Allergy/AdvReac Type Severity Reaction Status Date / Time erythromycin base Allergy Unknown Verified 06/07/17 14:38 ibuprofen [From Motrin] AdvReac Intermediate Diaphoresis Verified 06/07/17 14:38 codeine AdvReac Nausea Verified 06/07/17 14:38 Review of Systems - Constitutional Constitutional: reports: Other (Review of systems is unable to be and at this time due to the patient's unresponsiveness.) Exam - Vital Signs Reviewed Vital Signs: Yes Vital Signs: Vital Signs x48h Temp Pulse Resp BP Pulse Ox 07/10/17 01:47 36.4 C L 115 H 27 H 154/57 H 100 07/10/17 01:27 36.2 C L 119 H 29 H 158/78 H 99 07/10/17 01:17 122 H 31 H 158/78 H 100 07/10/17 01:07 122 H 29 H 155/54 H 100 07/10/17 00:50 36.4 C L 120 H 30 H 110/96 H 100 07/10/17 00:32 119 H 28 H 110/96 H 100 07/09/17 23:57 36.3 C L 121 H 23 142/79 H 100 - Physical Exam General Appearance: positive: Moderate distress, Anxious Eyes Bilateral: positive: Normal inspection, PERRL, EOMI, No lid inflammation, Conjunctivae nml, No scleral icterus ENT: positive: ENT inspection nml, No signs of dehydration, Dry mucous membranes. negative: Pharyngeal erythema, Oral lesions Neck: positive: Nml inspection, Thyroid nml, No JVD, Trachea midline. negative : Thyromegaly Respiratory: positive: Chest non-tender, No respiratory distress, Breath sounds nml. negative: Wheezes, Rales, Rhonchi Cardiovascular: positive: Regular rate & rhythm, No murmur, No gallop Peripheral Pulses: positive: 1+ Abdomen: positive: Non-tender, No organomegaly, Nml bowel sounds, No distention. negative: Guarding, Rebound Back: positive: Nml inspection. negative: CVA tenderness (R), CVA tenderness (L ) Skin: positive: Color nml, No rash, Warm, Dry. negative: Cyanosis Extremities: positive: Non-tender, Full ROM, Nml appearance, No pedal edema Neurologic/Psychiatric: positive: Other (Patient is actively dying and minimally responsive.) Conclusion/Plan - Problem List (1) Breast cancer metastasized to lung Conclusion/Plan: The patient is actively dying. Her chest x-ray shows extensive osteoblastic metastases, and we have been unable to correct the major electrolyte abnormalities she is exhibiting at this time. After a long discussion with the patient's daughter and , family has elected for comfort measures at this time and we have moved her into a medical surgical bed we were giving her around -the-clock morphine, Ativan, and Robinul. At this time she is not showing any overt signs of pain or anxiety however she is still somewhat tachypneic and we will increase the morphine dosing accordingly. I will monitor the patient closely and address any other issues as they arise. At this time her is imminent. - Lab Results Lab results reviewed: Yes Fish Bones: 07/10/17 00:15 07/10/17 00:15 - Diagnostic Imaging Results Diagnostic Imaging Results: positive: Final report reviewed Diagnostic Imaging Results Comments: EXAM: CHEST RADIOGRAPHY EXAM DATE: 07/10/2017 12:55 AM. CLINICAL HISTORY: Chemotherapy, ams. COMPARISON: 06/08/2017 chest x-ray. TECHNIQUE: 1 view. FINDINGS: Lungs/Pleura: No focal opacities evident. No pleural effusion. No pneumothorax. Mediastinum: Within exam limitations, the cardiomediastinal contour is normal. Other: Left chest port in stable position. Widespread osteoblastic metastases. IMPRESSION: 1. No acute airspace process. 2. Extensive osteoblastic metastases. Core Measures - Anticipated LOS I expect patient to be DC'd or transferred within 96 hours.: Yes - DVT/VTE - Prophylaxis VTE/DVT Device ordered at admit?: No Not Ordered - Medical Reason: Not indicated (The patient is actively dyingDVT is of no importance at this time.)
[2017-07-10] MEDS: MORPHINE 10 MG/ML VIAL IVP PRN ×4 (02:38→07:35)
[2017-07-10] MEDS ORDERED: MORPHINE 2 MG/ML CARPUJECT ONE ×2 (02:39→02:40)
[2017-07-10] MEDS ORDERED: SODIUM CHLORIDE FLUSH 0.9% 10 ML SYRINGE ONE (02:41)
[2017-07-10] MEDS: LORazepam 2 MG/ML VIAL IVP PRN ×6 (03:52→14:52)
[2017-07-10] MEDS: SODIUM CHLORIDE FLUSH 0.9% 10 ML SYRINGE IVP PRN ×6 (03:53→12:54)
[2017-07-10] MEDS ORDERED: MORPHINE 2 MG/ML CARPUJECT IVP PRN (07:54)
[2017-07-10 08:33] VITALS: BP 112/63
[2017-07-10] MEDS ORDERED: SODIUM CHLORIDE FLUSH 0.9% 10 ML SYRINGE IVP SCH (09:00)
[2017-07-10] MEDS ORDERED: POLYETHYLENE GLYCOL 3350 17 GM PACKET PO SCH (09:00)
[2017-07-10] MEDS ORDERED: ACETAMINOPHEN 160 MG/5 ML SUSP UDC PO PRN (10:40)
[2017-07-10] MEDS ORDERED: ATROPINE 1% OPHTH DROPS 2 ML SL PRN (10:40)
[2017-07-10] MEDS: MORPHINE 2 MG/ML CARPUJECT IVP PRN ×4 (11:38→15:53)
[2017-07-10] MEDS ORDERED: CARBOXYMETHYLCELLULOSE OPHTH DROPS EACHEYE PRN (16:22)
== END 2017-07-10 17:15 | disposition expired | DRG 181 ==
LOC: EDUNIT# → SUPCPDRO 23:53 → ED 23:53 → MS2 07-10 01:35
PROVIDERS: ADMIT Hospitalist; ATTEND Hospitalist
DX: C78.02 Secondary malignant neoplasm of left lung (principal); E87.2 Acidosis; D64.9 Anemia, unspecified; C78.01 Secondary malignant neoplasm of right lung; C50.919 Malignant neoplasm of unspecified site of unspecified female breast; R06.03 Acute respiratory distress; E87.8 Other disorders of electrolyte and fluid balance, not elsewhere classified; R40.0 Somnolence; G89.29 Other chronic pain; M54.9 Dorsalgia, unspecified; Z66 Do not resuscitate; Z79.899 Other long term (current) drug therapy; Z90.13 Acquired absence of bilateral breasts and nipples; Z90.710 Acquired absence of both cervix and uterus; Z97.8 Presence of other specified devices; Z87.440 Personal history of urinary (tract) infections
CPT/HCPCS: 36415; 51702; 71045; 80053; 80306; 81001; 81003; 82140; 82803; 83605; 83690; 83735; 84100; 84443; 84550; 85025; 85610; 85730; 86850; 86900; 86901; 86920; 87040; 87086; 93005; 96361; 96374; 96375; 99285